=== PATIENT | female | born 1995 | race Caucasian/White ===

== ENCOUNTER 2017-01-27 04:57 | Inpatient (IN) ==
--- NOTE | 2017-01-26 13:23 | HISTORY AND PHYSICAL ---
ADMITTING PHYSICIAN: Boo Weiss MD. PRINCIPAL DIAGNOSIS: Term , for repeat . SUMMARY: Megan Barnhart is a 21-year-old 2, para 1-0-0-1, who has had care at our office. Her blood type is B positive, rubella immune. Hepatitis B surface antigen, HIV are all negative. She has had an uncomplicated . Her first ended in a section for macrosomia; that infant weighed 9 pounds and 4 ounces. At our last ultrasound this current was measuring 60.6 percentile growth. After discussing options with the patient, she is being admitted for a repeat . PAST MEDICAL HISTORY: Patient has had a section for macrosomia. Her appendix has been removed. She has also had tonsillectomy. She did have a benign breast biopsy during this . PHYSICAL EXAMINATION: GENERAL: Shows a well-developed, well-nourished female. VITAL SIGNS: Stable. She is afebrile. CARDIOVASCULAR: Regular rate and rhythm without murmurs, rubs, or gallops. PULMONARY: Clear. BREASTS: No masses. ABDOMEN: Gravid. PELVIC: Cervix is closed. EXTREMITIES: Trace edema. IMPRESSION: Term , for repeat section. PLAN: Megan will undergo a repeat . Risks of the surgery including pain, bleeding, infection, bowel or bladder injury, and anesthesia complications have been discussed. Vaginal after was also discussed. cc: Boo Weiss MD
[2017-01-27] MEDS ORDERED: KEFZOL 1 GM/D5W 1 GM/50 ML IVPB IV PRN (05:02)
[2017-01-27] MEDS ORDERED: LR 1,000 ML IV SCH (05:02)
[2017-01-27] MEDS ORDERED: PEPCID ONE (05:02)
[2017-01-27] MEDS ORDERED: REGLAN ONE (05:02)
[2017-01-27] MEDS ORDERED: LR 2,000 ML ONE (05:25)
[2017-01-27 05:54] LABS: URINE SOURCE VOIDED
[2017-01-27 05:54] LABS: MANUAL DIFF NEEDED? NO
[2017-01-27 05:59] LABS: BASO% 0.3 % (0.0-0.8); EOS# 0.26 X1000 (0.0-0.7); EOS% 3.4 % (0.0-10.0); HEMATOCRIT 35.1 % (37.0-47.0); HEMOGLOBIN 11.3 g/dL (12.0-16.0); IMM GRAN# 0.02 X1000 (0.0-0.04); IMM GRAN% 0.3 % (0.0-0.5); LYMPH# 1.81 X1000 (1.2-3.4); LYMPH% 23.3 % (20.5-51.1); MCH 25.9 PG (27-31); MCHC 32.2 g/dL (33-37); MCV 80.5 FL (81-99); MONO# 0.77 X1000 (0.11-0.59); MONO% 9.9 % (1.7-9.3); MPV 11.7 FL (7.4-10.4); NEUT% 62.8 % (42.2-75.2); PLT 125 X1000 (130-400); RBC 4.36 XMIL (4.2-5.4)
[2017-01-27] MEDS ORDERED: BICITRA PO ONE (06:00)
[2017-01-27] MEDS ORDERED: PEPCID IV ONE (06:15)
[2017-01-27] MEDS ORDERED: DURAMORPH ONE (06:16)
[2017-01-27] MEDS ORDERED: NEO-SYNEPHRINE ONE ×2 (06:16)
[2017-01-27 06:22] LABS: BILIRUBIN URINE NEGATIVE (NEGATIVE); BLOOD URINE NEGATIVE (NEGATIVE); CLARITY SL. CLOUDY (CLEAR); COLOR YELLOW; GLUCOSE URINE NEGATIVE (NEGATIVE); LEUKOCYTES URINE TRACE (NEGATIVE); NITRITE URINE NEGATIVE (NEGATIVE); PROTEIN URINE NEGATIVE (NEGATIVE); SP GRAVITY URINE 1.015; UROBILINOGEN URINE NORMAL
[2017-01-27] MEDS ORDERED: PITOCIN ONE (06:27)
[2017-01-27] MEDS ORDERED: PITOCIN 20 UNITS/LR 20 UNITS/1,000 ML IV.SOLN ONE (06:27)
[2017-01-27] MEDS ORDERED: ZOFRAN ONE (07:13)
[2017-01-27] MEDS ORDERED: TORADOL ONE (07:13)
[2017-01-27] MEDS ORDERED: NARCAN INJ PRN (07:46)
[2017-01-27] MEDS ORDERED: NORCO-5 PO PRN ×2 (07:46→08:15)
[2017-01-27] MEDS ORDERED: BENADRYL IV PRN (07:46)
[2017-01-27] MEDS ORDERED: ZOFRAN IV PRN (07:46)
[2017-01-27] MEDS ORDERED: ZOFRAN ODT PO PRN (07:46)
[2017-01-27] MEDS ORDERED: AMBIEN PO PRN (08:15)
[2017-01-27] MEDS ORDERED: HYDROXYZINE PO PRN (08:15)
[2017-01-27] MEDS ORDERED: PITOCIN 20 UNITS/LR 20 UNITS/1,000 ML IV.SOLN IV ONE (08:15)
[2017-01-27] MEDS ORDERED: DEMEROL IM PRN (08:15)
[2017-01-27] MEDS ORDERED: PITOCIN IM PRN (08:15)
[2017-01-27] MEDS ORDERED: DULCOLAX PR PRN (08:15)
[2017-01-27] MEDS ORDERED: M-M-R II VACCINE SUBQ ONE (08:15)
[2017-01-27] MEDS ORDERED: NORCO-10 PO PRN (08:15)
[2017-01-27] MEDS ORDERED: PHENERGAN IM PRN (08:15)
[2017-01-27] MEDS ORDERED: PERCOCET-5 PO PRN (08:15)
[2017-01-27] MEDS ORDERED: DEMEROL PO PRN ×2 (08:15)
[2017-01-27] MEDS ORDERED: BOOSTRIX VACCINE IM ONE (08:15)
[2017-01-27] MEDS ORDERED: CYTOTEC PO PRN (08:15)
[2017-01-27] MEDS ORDERED: HYDROXYZINE IM PRN (08:15)
[2017-01-27] MEDS ORDERED: TORADOL IV SCH (08:15)
[2017-01-27] MEDS: MYLICON PO SCH ×4 (09:21→21:22)
[2017-01-27] MEDS: NORCO-10 PO PRN ×2 (09:33→19:32)
--- NOTE | 2017-01-27 11:18 | OPERATIVE NOTE ---
PROCEDURE DATE: 01/27/2017 SURGEON: Boo Weiss MD [employer] MANAGER: BOB Cabrera ANESTHESIA: Spinal. OPERATION PERFORMED: Repeat low transverse section. FINDINGS: At 0658, an 8 pound male was delivered in a vertex presentation by repeat section. There was a nuchal cord x1. scores were 9 at 1 minute and 10 at 5 minutes. DESCRIPTION OF PROCEDURE: The patient was taken back to the operating room, where a spinal anesthetic was placed by Dr. Ramirez. She was then placed in the supine position with a left lateral tilt. A Mohr catheter was placed in the urinary bladder. The abdomen was prepped and draped in usual fashion. Once satisfactory conduction anesthesia was demonstrated, a repeat Pfannenstiel incision was made. This incision was taken down to the fascia. The fascia was excised transversely. The underlying rectus muscle was bluntly and sharply dissected free. The rectus muscle was in the midline. The peritoneum was entered. The lower uterine segment was identified. A bladder flap was created. A low transverse incision was made across the myometrium. This incision was extended laterally using digital pressure. Membranes were ruptured revealing clear fluid. The infant's head was delivered through this incision without difficulty. The nuchal cord was reduced. The shoulders and body delivered without complications. The cord was clamped and cut, and the infant was handed to the nurses further care and evaluation. Cord blood was obtained. The placenta was manually removed. The uterus was delivered onto the abdominal wall and explored. All membrane fragments were removed. The myometrium was then reapproximated using a running #1 chromic interlocking suture, followed by several [id number] chromic sutures for complete hemostasis across the suture line. The uterus was placed back in the pelvic cavity. Uterine incision was irrigated with copious amounts of sterile water. The incision was reexamined and found to be hemostatic. First and 2nd sponge, instrument, and needle counts were reported as correct as the peritoneum was closed using a running chromic suture. Final sponge, instrument, and needle count was reported as correct as the fascia was closed using running Vicryl sutures x2. The adipose tissue was reapproximated using running 3-0 Vicryl suture. The skin edges were reapproximated using a 3-0 Monocryl suture. Anesthesia estimated her blood loss at 600 mL. There were no complications. The patient went to the recovery room in stable condition. cc: Boo Weiss MD
[2017-01-27] MEDS: PITOCIN 10 UNITS/LR 10 UNIT/1,000 ML IV.SOLN IV SCH ×2 (12:13→20:21)
[2017-01-27] MEDS: ZOFRAN IV PRN ×2 (12:13→21:26)
[2017-01-27] MEDS: TORADOL IV SCH ×2 (13:14→19:31)
[2017-01-27] MEDS: PERICOLACE PO SCH (21:22)
[2017-01-27] MEDS: PERCOCET-10 PO PRN (23:25)
[2017-01-28] MEDS: MYLICON PO PRN ×2 (01:01→04:28)
[2017-01-28] MEDS: TORADOL IV SCH (02:40)
[2017-01-28] MEDS ORDERED: LR 500 ML ONE (03:37)
[2017-01-28] MEDS: PERCOCET-10 PO PRN ×5 (04:28→21:08)
[2017-01-28] MEDS ORDERED: LR 1,000 ML IV SCH (07:27)
[2017-01-28 08:36] LABS: HEMOGLOBIN 10.2 g/dL (12.0-16.0); MCH 26.6 PG (27-31); MCHC 32.9 g/dL (33-37); MCV 80.7 FL (81-99); MPV 11.6 FL (7.4-10.4); RBC 3.84 XMIL (4.2-5.4)
[2017-01-28] MEDS: MOTRIN PO PRN ×2 (08:49→17:05)
[2017-01-28] MEDS: MYLICON PO SCH ×4 (08:49→21:08)
[2017-01-28] MEDS: PERICOLACE PO SCH (21:08)
[2017-01-29] MEDS ORDERED: PEPCID PO PRN (00:14)
[2017-01-29] MEDS: PERCOCET-10 PO PRN ×2 (00:31→07:25)
[2017-01-29] MEDS: MOTRIN PO PRN ×2 (00:31→08:59)
[2017-01-29 07:28] VITALS: BP 108/62
[2017-01-29] MEDS: MYLICON PO SCH (08:59)
--- NOTE | 2017-01-29 18:07 | DISCHARGE SUMMARY ---
ADMISSION DATE: 01/27/2017 DISCHARGE DATE: 01/29/2017 DATE OF ADMISSION: 01/27/2017. DATE OF DISCHARGE: 01/29/2017. ADMITTING DIAGNOSES: 1. Term . 2. Previous requesting repeat . PRINCIPAL DIAGNOSES: 1. Term . 2. Previous requesting repeat . PRINCIPAL PROCEDURE: Repeat low-transverse . SUMMARY: Megan Barnhart is a 21-year-old 2, para 1001, who had previously had a section. She was requesting a repeat . So she was therefore admitted to the hospital and on 01/27/2017, underwent a repeat delivering an 8 pound male who had Apgars of 9 at 1 minute and 10 at 5 minutes. There were no intraoperative complications. Following delivery, the patient did well. She remained afebrile and all vital signs were stable. She had an admission hemoglobin and hematocrit of 11.3/35.1. At discharge, hemoglobin and hematocrit being 10.2/31. On the day of discharge, cardiac and pulmonary examinations were normal. Bowel and bladder function was normal. The incision was clean and dry. She was having scant vaginal bleeding. Ms. Barnhart will be discharged today and we will see her back in the office in a week. Routine discharge instructions, and activity limitations, and precautions were discussed. DISCHARGE MEDICATIONS: She was given prescriptions for Percocet and Motrin for pain. She will continue vitamins. She is requesting a prescription of Wellbutrin 150 mg due to a previous history of depression. cc: Boo Weiss MD
== END 2017-01-29 12:40 | disposition home or self-care (01) ==
LOC: P.LD 04:57
PROVIDERS: ADMIT Obstetrics & Gynecology; ATTEND Obstetrics & Gynecology